=== PATIENT | male | born 1995 | race Caucasian/White ===

== ENCOUNTER 2021-01-09 12:26 | Emergency (ER) | payer SELFPAY ==
[2021-01-09 12:30] VITALS: BP 134/89; PULSE 60; RESP 18; TEMP 36.4; O2SAT 99
[2021-01-09] MEDS: diphenhydrAMINE HCl CAP 25 MG CAPSULE 50 MG PO (14:31)
[2021-01-09] MEDS: methylPREDNISolone SOD SUCC 125 MG VIAL IM (14:32)
[2021-01-09] MEDS: FAMOTIDINE 20 MG TABLET 40 MG PO (14:32)
--- NOTE | 2021-01-09 15:12 | ED.SKABFB ---
HPI - Skin/Abscess/Foreign Bdy General Chief complaint: Skin/Abscess/Foreign Body Stated complaint: rash Time Seen by Provider: 01/09/21 13:40 Source: patient Mode of arrival: ambulatory Limitations: no limitations History of Present Illness HPI narrative: Patient is a 25-year-old male who presents complaining of generalized pruritic rash x1 week. Patient was seen in urgent care and given prescription for ringworm. Patient reports increased itching and discomfort. He denies fever, significant medical history and all other complaints at this time. MD complaint: rash Related Data Allergies Allergy/AdvReac Type Severity Reaction Status Date / Time No Known Allergies Allergy Verified 01/09/21 13:36 Review of Systems Review of Systems: Narrative: CONSTITUTIONAL: Denies fever, chills, or sweats. EYES: Denies visual changes, redness, or discharge. ENT: Denies rhinorrhea, congestion, sore throat, or otalgia. CARDIOVASCULAR: Denies chest pain, palpitations, or edema. RESPIRATORY: Denies cough or dyspnea. GASTROINTESTINAL: Denies abdominal pain, nausea, vomiting, or diarrhea. GENITOURINARY: Denies dysuria or hematuria. SKIN: Generalized pruritic rash MUSCULOSKELETAL: Denies back pain, joint pain, or myalgia. NEUROLOGIC: Denies headache, numbness, dizziness, or weakness. PSYCHIATRIC: Denies anxiety or depression. PMFSH Past Medical History Medical History (Updated 01/09/21 @ 15:20 by JHOANA Hammond) No significant past medical history Surgical History Surgical History (Updated 01/09/21 @ 15:15 by JHOANA Hammond) No significant past surgical history Family History Family History (Updated 01/09/21 @ 15:15 by JHOANA Hammond) Other No significant family history Comments At the time of signature, I have reviewed and agree with nursing past medical, surgical, social, and family history unless otherwise noted. Please see nursing chart for further information. There is no relevant family history pertinent to the presenting complaint. Exam Narrative: Exam Narrative: GENERAL: Well-appearing, well-nourished, and in no acute distress. HEAD: Normocephalic, atraumatic. EYES: EOMI. No redness or drainage. Conjunctiva are normal. ENT: Mucous membranes pink and moist. . CHEST: No respiratory distress. Clear to auscultation. HEART: Regular rate and rhythm. No murmur appreciated. Normal peripheral pulses. EXTREMITIES: Normal range of motion. No edema. SKIN: Pruritic raised erythematous areas to bilateral extremities, torso and head NEURO: No focal deficits. Alert and oriented x3. Gait steady. PSYCH: Normal affect. No signs of depression or anxiety. Course Vital Signs Vital signs: Vital Signs Temperature 36.4 C L 01/09/21 12:30 Pulse Rate 60 01/09/21 12:30 Respiratory Rate 18 01/09/21 12:30 Blood Pressure 134/89 01/09/21 12:30 Pulse Oximetry 99 01/09/21 12:30 Temperature 36.4 C L 01/09/21 12:30 Pulse Rate 60 01/09/21 12:30 Respiratory Rate 18 01/09/21 12:30 Blood Pressure 134/89 01/09/21 12:30 Pulse Oximetry 99 01/09/21 12:30 Reviewed. Patient has been instructed to follow-up with his PCP regarding his blood pressure. MDM - Skin/Abscess/Foreign Bdy MDM Narrative Medical decision making narrative: Patient appears to have urticaria. Solu-Medrol, famotidine and Benadryl given in the ER, patient reports relief of pruritus. Erythema lessening at this time. Patient sent home with prescription and referral for PCP. Patient is stable for discharge to home with outpatient follow up as directed. Differential Diagnosis Differential diagnosis: Likely viral exanthem, urticaria, cellulitis, eczema and contact dermatitis Discharge Plan Discharge Clinical Impression: Urticaria Patient Disposition: Home, Self-Care Condition: Stable Instructions: Urticaria (ED) Additional Instructions: Take medication as directed. Follow-up with referred PCP in 3 to 5 days. If
== END 2021-01-09 15:50 | disposition home or self-care (01) ==
PROVIDERS: Emergency Provider Nurse Practitioner
DX: L50.9 Urticaria, unspecified (principal)
CPT/HCPCS: 96372; 99283; A9270; J2930

== ENCOUNTER 2022-11-02 18:57 | Emergency (ER) | payer OTHER, SELFPAY ==
[2022-11-02 19:26] VITALS: BP 111/82; PULSE 62; RESP 16; TEMP 36.6; O2SAT 99
--- NOTE | 2022-11-02 22:14 | ED.GENADULT ---
HPI - General Adult General Chief complaint: Ear <Mejia Montiel PA-C - Last Filed: 11/03/22 02:59> Stated complaint: ear infection <Mejia Montiel PA-C - Last Filed: 11/03/22 02:59> Time Seen by Provider: 11/02/22 21:12 <Mejia Montiel PA-C - Last Filed: 11/03/22 02:59> Source: patient <AVNI Sim Last Filed: 11/03/22 02:59> Mode of arrival: ambulatory <AVNI Sim Last Filed: 11/03/22 02:59> Limitations: no limitations <Mejia Montiel PA-C - Last Filed: 11/03/22 02:59> History of Present Illness HPI narrative: This is a 27-year-old male comes to the ED with chief complaint of right ear pain x3 days. Patient reports a palpable bump to his external right ear that is in pain. He states there is only pain with palpation. Denies any ear pain. Denies viral URI symptoms. He does note that his son has been putting things in his ears while he sleeps and feels that this may be the source of his symptoms. Denies fever, chills, chest pain, shortness of breath, abdominal pain, nausea, vomiting. <Mejia Montiel PA-C - Last Filed: 11/03/22 02:59> Related Data Allergies/adverse reactions: Allergies Allergy/AdvReac Type Severity Reaction Status Date / Time No Known Allergies Allergy Verified 01/09/21 13:36 <Mejia Montiel PA-C - Last Filed: 11/03/22 02:59> Review of Systems Review of Systems: CONSTITUTIONAL: Denies fever, chills, or sweats. SKIN: Denies rash or itching. MUSCULOSKELETAL: Denies back pain, joint pain, or myalgia. NEUROLOGIC: Denies headache, numbness, dizziness, or weakness. PSYCHIATRIC: Denies anxiety or depression. <AVNI Sim Last Filed: 11/03/22 02:59> [facility] Past Medical History Medical History: Medical History (Updated 11/03/22 @ 00:01 by Background Carlton) No significant past medical history <Mejia Montiel PA-C - Last Filed: 11/03/22 02:59> Surgical History Surgical History: Surgical History (Updated 01/09/21 @ 15:15 by Devora Jimenez, HEAD OF SCIENCE) No significant past surgical history <Mejia Montiel PA-C - Last Filed: 11/03/22 02:59> Family History Family History: Family History (Updated 01/09/21 @ 15:15 by Devora Jimenez, [employer] OF [employer]) Other No significant family history <Mejia Montiel PA-C - Last Filed: 11/03/22 02:59> Exam Narrative: GENERAL: Well-appearing, well-nourished, and in no acute distress. HEAD: Normocephalic, atraumatic. EYES: PERRLA and EOMI. ENT: Nares clear, no rhinorrhea or epistaxis. Mucous membranes moist. Oropharynx without tonsillar hypertrophy exudate or other lesions. Tympanic membranes intact bilaterally. Erythematous bilateral auditory canals. There is a small 2 mm area of raised skin in the external ear. No erythema or drainage is present. Tenderness is present in this area. NECK: Supple. No adenopathy or masses. CHEST: No respiratory distress. Clear to auscultation. No wheezes rales or rhonchi HEART: Regular rate and rhythm. No murmur heard. Normal peripheral pulses. ABDOMEN: Soft, nontender, nondistended, normal active bowel sounds. EXTREMITIES: Normal range of motion. No edema. SKIN: Warm, dry, no rash. NEURO: Alert and oriented x3. No focal deficits. PSYCH: Normal mood and affect. <Mejia Montiel PA-C - Last Filed: 11/03/22 02:59> Course [employer] DEVELOPER/PA Physician Supervision This is a was performed by both a physician and an APC. I performed all aspects of the MDM as documented w/ the following additions: 27-year-old presenting with ear pain. He has a clogged pore and a pimple on his ear. Tympanic membrane was normal. Patient will be discharged. All questions answered. Patient in agreement w/ disposition. <Blaze Fraire MD - Last Filed: 11/06/22 01:54> Vital Signs Vital signs: Vital Signs Temperature 97.8 F 11/02/22 19:26 Pulse Rate 62 11/02/22 19:26 Respiratory Rate 16 11/02/22 19:26 Blood Pressure 111/82
== END 2022-11-02 23:56 | disposition home or self-care (01) ==
PROVIDERS: Emergency Provider Physician Assistant
DX: R23.8 Other skin changes (principal)
CPT/HCPCS: 99281